=== PATIENT | female | born 1945 | race Caucasian/White ===

== ENCOUNTER 2019-04-13 12:54 | Emergency (ER) | payer BC, OTHER ==
[~2019-04-13] VITALS: Ht 170.2 cm; Wt 69.9 kg
[2019-04-13 13:06] VITALS: Ht 170.2 cm; Wt 69.9 kg
[2019-04-13 13:57] LABS: BASOPHIL % 0.8 % (0-2); PLATELET COUNT 258 x10^3mcL (130-400); RED CELL DISTRIBUTION WIDTH 13.4 % (11.5-14.5)
[2019-04-13 13:59] LABS: CALCIUM 9.4 mg/dL (8.5-10.1); CARBON DIOXIDE 24.4 mmol/L (21-32); CHLORIDE SERUM 103 mmol/L (98-107); CREATININE SERUM 0.8 mg/dL (0.6-1.0); GLUCOSE SERUM 92 mg/dL (74-106); POTASSIUM SERUM 4.3 mmol/L (3.5-5.1); SODIUM SERUM 139 mmol/L (136-145)
[2019-04-13 14:03] LABS: ALKALINE PHOSPHATASE 72 U/L (46-116); ALT/SGPT 23 U/L (14-59); AST/SGOT 15 U/L (15-37); BILIRUBIN TOTAL 0.5 mg/dL (0.20-1.00); LIPASE 142 IU/L (73-393); TOTAL PROTEIN, SERUM 7.1 g/dL (6.4-8.2)
[2019-04-13 14:21] LABS: ALBUMIN 3.2 g/dL (3.4-5.0)
[2019-04-13 14:41] LABS: microscopic required? NO
[2019-04-13 14:58] LABS: urine erythrocyte NEGATIVE (NEGATIVE)
[2019-04-13 17:24] VITALS: BP 116/56
== END 2019-04-13 17:24 | disposition home or self-care (01) ==
LOC: ED 12:54
PROVIDERS: Emergency Medicine
DX: K29.70 Gastritis, unspecified, without bleeding (principal); I10 Essential (primary) hypertension; E78.00 Pure hypercholesterolemia, unspecified; Z90.710 Acquired absence of both cervix and uterus
CPT/HCPCS: J2270; J2405; J7030; Q0092; Q9967